=== PATIENT | female | born 1985 | race Caucasian/White ===

== ENCOUNTER 2021-08-04 01:03 | Day surgery (SDC) | payer BC, SELFPAY ==
[2021-07-27 12:21] VITALS: BMI 34.3
--- NOTE | 2021-07-27 12:33 | PC.NURSE ---
Report to the Outpatient Waiting Room, entrance under the green pavilion located off [facility], at time 0730 on date 08/04/21. OR Time: 0930. - You will be asked a series of questions to screen for COVID 19 for your protection. - A mask is required within the hospital. - No visitors are allowed at this time. Preoperative COVID Testing Requirements: No COVID Test needed if: (proof is required; if not received patient will have Rapid Test prior to entry) - Patient has received COVID Vaccine at least 14 days prior to procedure date or - Patient has positive COVID test result within last 90 days of surgery date. COVID Test needed if above criteria is not met Patients may have clear liquids (water, carbonated beverages, clear teas, apple juice) until 3 hours prior to surgery with a maximum of 20 ounces. - No food from midnight until time of surgery - Infants may have breast milk until 4 hours before surgery, formula 6 hours prior to surgery. - Children will be allowed to drink immediately following surgery. If applicable, please bring a bottle or sippy cup to assist with drinking. Juice, water, soda, and popsicles are readily available. For infants on formula, please bring formula the day of surgery. Pacifiers are allowed. Take the following medications with a SIP of water the morning of surgery: LEXAPRO Medications to discontinue per physician: VITAMINS/SUPPLEMENTS Date to take last dose: 07/31/21 Please no make-up, nail sami, hairspray, perfume, deodorant, or body powder the day of surgery. No jewelry (including any body piercings) or valuables the day of surgery, leave them at home. Please take a shower or bath the night before, or the morning of, surgery with an antibacterial soap. Wear comfortable, loose fitting clothing. - Jewelry must be removed prior to entering the operating room. Rings and piercings that are not removed may be cut off. - The hospital will not accept responsibility for valuables. - Please leave all valuables, including medications, at home the day of surgery. If you are going home after surgery, a licensed customer service driver must drive you home. STAYING OVERNIGHT - NO public transportation without another adult. - We recommend that an adult stay with you for 24 hours following discharge. - We also recommend that you do not drive, make important decision, drink alcoholic beverages, or take any drugs that were not prescribed by your health care provider for at least 24 hours after your discharge time. Follow any additional instructions given to you from your surgeon. Telephone instructions given to RASHAD HARPER and asked if any additional questions and then verbalized understanding. Patient advised to call surgeon office or pre surgery nurse liaison [phone] if any additional questions.
--- NOTE | 2021-08-02 06:26 | P.HP_ITS ---
H&P: HPI History of Present Illness Date/Time: 08/02/21 06:26 35-year-old 1 para 1 who is admitted for robotic total vaginal hysterectomy and bilateral salpingectomy secondary to can continued high-grade TIARA. Patient has had recurrent severe dysplasia. She is to a point where she declines continued surveillance and would like to have definitive therapy via hysterectomy. Risks and benefits reviewed in full. Chief Complaint: recurrent high-grade dysplasia Review of Systems Review of Systems: All systems reviewed & are unremarkable except as noted in HPI and below [facility] Social History Social History Smoking status: Never smoker Alcohol intake: current Alcohol use details: 2/MONTH Substance use: never Substance use type: does not use Living arrangements: with family Spiritual care concerns: No Meds Home Medications and Allergies Home Medications Medication Instructions Recorded Confirmed Type aripiprazole [Abilify] 2 mg PO HS 07/27/21 07/27/21 History cetirizine [Zyrtec] 10 mg PO DAILY 07/27/21 07/27/21 History cholecalciferol (vitamin D3) 125 mcg PO DAILY 07/27/21 07/27/21 History [Vitamin D3] escitalopram oxalate 20 mg PO BID 07/27/21 07/27/21 History Allergies Allergy/AdvReac Type Severity Reaction Status Date / Time No Known Allergies Allergy Verified 07/27/21 12:19 Exam Const: General: no acute distress Eyes: General: appearance normal, both eyes and all related structures Neck: Neck: supple and no JVD Thyroid: thyroid normal Resp: Effort & Inspection: normal respiratory effort Auscultation: clear to auscultation bilaterally Cardio: Rate: regular rate Rhythm: regular rhythm GI: Inspection: non-distended GI Palp: Yes Soft to palpation, No Tenderness to palpation present (GI) and No Guarding due to palpation present (GI) Auscultation: normal bowel sounds : General: Yes bladder normal to palpation External Female Exam: normal external appearance Speculum Exam - Vagina: normal vaginal discharge and No vaginal bleeding Speculum Exam - Cervix: nontender Bimanual exam- vagina & uterus: bladder normal to palpation and No Cervical tenderness present OB/external & speculum: No vaginal bleeding Skin: General skin exam: no rashes or lesions noted Extrem: General: normal to inspection and no edema Psych: Mental Status: mental status grossly normal Affect: normal affect Assessment and Plan Additional Plan Impression: Recurrent high-grade dysplasia Plan: Robotic total vaginal hysterectomy and bilateral salpingectomies
--- NOTE | 2021-08-03 13:17 | WPDANESEPPF ---
Anes - Initial Pre Proc Eval Procedure: Operation Date: 08/04/21 09:30 Proposed Procedures p Robotic Assisted Total Vaginal Hysterectomy with Bilateral Salpingectomy - Siddharth Downs MD Date/Time: 08/03/21 13:17 Surgeon: Siddharth Downs MD Pre Op Diagnosis: abnormal pap smear with high dysplasia Patient Data Age: 35 Gender: F Height: 1.78 m Weight: 108.56 kg Allergies Allergy/AdvReac Type Severity Reaction Status Date / Time No Known Allergies Allergy Verified 07/27/21 12:19 Home Medications Medication Instructions Recorded Confirmed Type aripiprazole [Abilify] 2 mg PO HS 07/27/21 07/27/21 History cetirizine [Zyrtec] 10 mg PO DAILY 07/27/21 07/27/21 History cholecalciferol (vitamin D3) 125 mcg PO DAILY 07/27/21 07/27/21 History [Vitamin D3] escitalopram oxalate 20 mg PO BID 07/27/21 07/27/21 History Results Review: All pre-operative results and documents have been reviewed as part of the pre-operative evaluation. [facility] Past Medical History Medical History (Updated 08/03/21 @ 13:17 by Kashmir Pizano MD) Anxiety Depression Social History Social History Smoking status: Never smoker Alcohol intake: current Alcohol use details: 2/MONTH Substance use: never Substance use type: does not use Living arrangements: with family Spiritual care concerns: No Anes - Eval Final PreProcedure Day of Procedure 08/03/21 13:17 Results Review: All pre-operative results and documents have been reviewed as part of the pre-operative evaluation. Informed Consent: The patient's anesthetic plan and its attendant risks and benefits were discussed with the patient/family/POA. Questions were solicited and answers provided to the satisfaction of the patient/family/POA.
[2021-08-04] VITALS (11 sets, daily range): BP systolic 107–143; BP diastolic 58–85; PULSE 68–102; RESP 16–22; TEMP 36.6–37.7; O2SAT 93–100; BMI 34.7
--- NOTE | 2021-08-04 07:07 | WPDHPUPDATE1 ---
History and Physical Update Update Date/Time: 08/04/21 07:07 History and Physical has been reviewed, including an updated exam of the patient. There are NO changes in the patient's condition. Risks, benefits, and alternatives have been discussed and questions answered. Patient agrees to proceed with procedure.
[2021-08-04] MEDS: KETOROLAC 15 MG/ML VIAL (*BKC) IV PUSH (08:09)
[2021-08-04] MEDS: LACTATED RINGERS 1,000 ML 30 ML IV CONT ×2 (08:09→11:10)
[2021-08-04] MEDS: ACETAMINOPHEN 500 MG TABLET 1000 MG PO (08:10)
[2021-08-04 08:25] LABS: Basophils Absolute Auto 0.1 K/mm3 (0.0-0.1); Basophils Percent Auto 0.6 % (0.2-1.2); Eosinophils Absolute Auto 0.2 K/mm3 (0-0.3); Eosinophils Percent Auto 2.3 % (0-4.4); Hematocrit 39.7 % (37.0-47.0); Hemoglobin 13.4 g/dL (12.0-15.0); Immature Granulocyte Absolute 0.05 K/mm3 (0.00-0.031); Immature Granulocyte Percent A 0.5 % (0-0.5); Lymphocytes Absolute Auto 2.13 K/mm3 (0.9-3.2); Mean Corpuscular HGB Conc 33.8 g/dl (32-36); Mean Corpuscular Hemoglobin 31.1 pg (26-34); Mean Corpuscular Volume 92.1 fl (80-100); Mean Platelet Volume 10.3 fl (7.4-10.4); Monocytes Absolute Auto 0.7 K/mm3 (0.1-0.6); Monocytes Percent Auto 7.4 % (2.6-8.5); Neutrophils Absolute Auto 6.1 K/mm3 (1.3-6.7); Neutrophils Percent Auto 66.2 % (45.5-73.1); Platelet Count Result 285 k/mm3 (150-375); Red Blood Count 4.31 M/mm3 (4.2-5.4); Red Cell Distribution Width 12.2 % (11.5-14.5); White Blood Count 9.3 K/mm3 (4.5-10.0)
--- NOTE | 2021-08-04 08:28 | WPDANESEPPF ---
Anes - Initial Pre Proc Eval Procedure: Operation Date: 08/04/21 09:30 Proposed Procedures p Robotic Assisted Total Vaginal Hysterectomy with Bilateral Salpingectomy - Siddharth Downs MD Date/Time: 08/04/21 08:28 Surgeon: Siddharth Downs MD Pre Op Diagnosis: abnormal pap smear with high dysplasia Patient Data Age: 35 Gender: F Height: 1.78 m Weight: 109.7 kg Last Vital Signs Temp 36.9 C 08/04/21 07:50 Pulse 68 08/04/21 07:50 Resp 18 08/04/21 07:50 BP 135/85 08/04/21 07:50 Pulse Ox 98 08/04/21 07:50 Allergies Allergy/AdvReac Type Severity Reaction Status Date / Time No Known Allergies Allergy Verified 08/04/21 07:53 Home Medications Medication Instructions Recorded Confirmed Type aripiprazole [Abilify] 2 mg PO HS 07/27/21 08/04/21 History cetirizine [Zyrtec] 10 mg PO DAILY 07/27/21 08/04/21 History cholecalciferol (vitamin D3) 125 mcg PO DAILY 07/27/21 08/04/21 History [Vitamin D3] escitalopram oxalate 20 mg PO BID 07/27/21 08/04/21 History hydrocodone-acetaminophen 1 tablet PO Q4H PRN #30 tablet 08/04/21 Rx Laboratory Tests 08/04/21 08:10 WBC Pending RBC Pending Hgb Pending Hct Pending MCV Pending MCH Pending MCHC Pending RDW Pending Plt Count Pending MPV Pending Immature Gran % (Auto) Pending Neut % (Auto) Pending Lymph % (Auto) Pending [place] % (Auto) Pending Eos % (Auto) Pending Baso % (Auto) Pending Lymph # (Auto) Pending [place] # (Auto) Pending Eos # (Auto) Pending Baso # (Auto) Pending Abs Immat Gran (auto) Pending Absolute Neuts (auto) Pending Absolute Nucleated RBC Pending Nucleated RBC % Pending Patient hx anesthesia problems: none Family hx anesthesia problems: none Results Review: All pre-operative results and documents have been reviewed as part of the pre-operative evaluation. [facility] Past Medical History Medical History Anxiety Depression Social History Social History Smoking status: Never smoker Alcohol intake: current Alcohol use details: 2/MONTH Substance use: never Substance use type: does not use Living arrangements: with family Spiritual care concerns: No Anes - Eval Final PreProcedure Day of Procedure 08/04/21 08:28 Patient weight: obese Heart: regular rate and rhythm Lungs: clear to auscultation Airway: Mallampati scale class II Neurological: alert and oriented Last oral intake: >/= 8 hours ASA classification: II Emergent: no Anesthetic plan: proceed Anesthesia type and monitoring: general ETT and standard monitoring Results Review: All pre-operative results and documents have been reviewed as part of the pre-operative evaluation. Informed Consent: The patient's anesthetic plan and its attendant risks and benefits were discussed with the patient/family/POA. Questions were solicited and answers provided to the satisfaction of the patient/family/POA.
[2021-08-04] MEDS: ceFAZolin 2 GM/D5W 50 ML 2 GM/50 ML BAG IVPB (09:31)
--- NOTE | 2021-08-04 10:54 | W.PM.PROC2 ---
Procedure Note - Detailed Date of Procedure 08/04/21 Pre-op Diagnosis abnormal pap smear with high dysplasia Post-op Diagnosis same Procedure Performed Robotic total vaginal hysterectomy and bilateral salpingectomies Surgeon Siddharth Downs MD Anesthesia general Indications This is a 35-year-old female with a history of abnormal Pap and high-grade recurrent dysplasia Findings Enlarged uterus normal-appearing ovaries and tubes was a fair amount of scar tissue anteriorly over the bladder and anterior portion of the uterus Description of Procedure The patient was prepped and draped in the normal sterile fashion placed in dorsal lithotomy position. Under excellent general trach anesthesia weighted speculum placed in posterior fornix vagina. Anterior lip of the cervix grasped with a single-tooth tenaculum and the uterus sounded to 10cm. Serial dilatation with fragmented dilators performed followed passes of the 10mm RYANN and the 3. Cold cup. Next the 16 [place] catheter was placed in the bladder drained of clear urine the remainder the instruments removed and gloves were changed. A supraumbilical incision made the Veress needle passed in the abdomen. Abdomen filled with CO2 gas [id number]. The 8mm trocar advanced in the abdomen downside visualized no injury seen. Patient placed in Trendelenburg and right left lateral quadrant incisions made. The 8mm trocars advanced under direct visualization assuring no injury right upper quadrant incision made 8mm trocar advanced under direct visualization assuring no injury. The robot was docked Attention was turned to the preparole counseling aide. The anteriorly the uterus was stuck to the anterior abdominal wall so this was layer by layer dissected until the bladder could be seen. The left round ligament was grasped, burned, cut. And anteriorly a bladder flap was formed by sharply dissecting the peritoneum and reflecting the bladder caudally. This was brought across to the opposite round ligament was clamped, burned, cut. Normal ovaries and tubes were present the tubes were sharply dissected off the other tube was dissected off the ovary and left attached at its origin of the uterus. In like fashion next the cardinal broad ligaments were skeletonized on the left clamped, burned, cut and brought down the lateral edge of the uterus cervix into the uterine vessels could be seen. These were then clamped burned and cut. In like fashion the cardinal broad ligaments on the right were serially skeletonized. They were clamped, burned, cut and brought to the level of the uterine vessels. These were then individually clamped, burned, cut. Blanching of the uterus was noted in a colpotomy incision was made. The cervix uterus and tubes removed through the vagina. The vagina was then closed with continuous running 0V lock from lateral edge to lateral edge and back to the midline. Irrigation undertaken to clear and hemostasis was assured. The robot was then undocked. The gas removed from the incisions closed with 4 Monocryl and glue. The patient was awakened and went to recovery in satisfactory condition. All sponge, needle, instrument counts were correct. There were no immediate complications Estimated Blood Loss 25 Drains No Packing No Pathology yes Complications No immediate complications Condition stable Disposition PACU
[2021-08-04] MEDS: ONDANSETRON INJ 4 MG/2 ML VIAL IV PUSH (11:30)
[2021-08-04] MEDS: diphenhydrAMINE HCl INJ 50 MG/ML VIAL 25 MG IV PUSH (12:00)
[2021-08-04] MEDS: SCOPOLAMINE 1.5 MG PATCH TRANSDERM (12:03)
--- NOTE | 2021-08-04 12:18 | SUR.PHASEI ---
faxed sbar at 1211
--- NOTE | 2021-08-04 12:36 | PC.NURSE ---
This patient, Ana Luisa Landaverde, was received from PACU on 08/04/21 at 1236. Patient/family oriented to unit policies and routines
[2021-08-04] MEDS: DEXTROSE 5%/LACTATED RINGERS 1,000 ML 125 ML IV CONT (13:11)
[2021-08-04] MEDS: KETOROLAC 30 MG/ML VIAL (*BKC) IV PUSH (14:58)
[2021-08-05 00:05] VITALS: BP 119/48; PULSE 81; RESP 18; TEMP 37.2; O2SAT 98
[2021-08-05] MEDS: IBUPROFEN 600 MG TABLET PO (03:50)
[2021-08-05 04:00] VITALS: BP 110/68; PULSE 73; RESP 18; TEMP 36.9; O2SAT 97
[2021-08-05 04:19] LABS: Basophils Absolute Auto 0.1 K/mm3 (0.0-0.1); Basophils Percent Auto 0.5 % (0.2-1.2); Eosinophils Percent Auto 0.3 % (0-4.4); Hemoglobin 12.3 g/dL (12.0-15.0); Immature Granulocyte Absolute 0.08 K/mm3 (0.00-0.031); Immature Granulocyte Percent A 0.6 % (0-0.5); Lymphocytes Absolute Auto 2.39 K/mm3 (0.9-3.2); Lymphocytes Percent Auto 17.4 % (18.3-44.2); Mean Corpuscular HGB Conc 33.2 g/dl (32-36); Mean Corpuscular Hemoglobin 30.7 pg (26-34); Mean Corpuscular Volume 92.3 fl (80-100); Mean Platelet Volume 10.3 fl (7.4-10.4); Monocytes Absolute Auto 1.1 K/mm3 (0.1-0.6); Monocytes Percent Auto 8.2 % (2.6-8.5); Platelet Count Result 304 k/mm3 (150-375); Red Blood Count 4.01 M/mm3 (4.2-5.4); Red Cell Distribution Width 12.1 % (11.5-14.5); White Blood Count 13.7 K/mm3 (4.5-10.0)
[2021-08-05 07:43] VITALS: BP 124/61; PULSE 75; RESP 16; TEMP 37; O2SAT 96
[2021-08-05 07:45] VITALS: BP 124/61; PULSE 75; RESP 12; TEMP 37; O2SAT 96
--- NOTE | 2021-08-05 08:39 | PM.GYNPNOP ---
HYDRAULIC MODELING ENGINEER - A/P Postoperative Procedures: Procedures Operation Date: 08/04/21 09:30 Actual Procedure Side Surgeon p Robotic Assisted Total Vaginal Hysterectomy with Bilateral Salpingectomy Bilateral Siddharth Downs MD A: POD#1, doing well. P: Home to f/u 2 weeks. Time Spent With Patient Time with patient: less than 15 minutes HYDRAULIC MODELING ENGINEER- PN:Subj Post-Op Subjective Date/time seen: 08/05/21 08:39 Interval history: Pain OK. Tolerating diet. Voiding. Would like to go home. Exam Narrative: AVSS I/O OK ABD soft, nontender. Incisions c/d/i. EXT nontender HYDRAULIC MODELING ENGINEER - PN: Obj Data Vital Signs Vital Signs: Vital Signs - 24 hr 08/04/21 11:03 08/04/21 11:15 08/04/21 11:30 Temperature 36.6 C Pulse Rate 101 H 78 74 Respiratory Rate 20 20 20 Blood Pressure 143/58 H 118/62 127/71 Pulse Oximetry 97 100 94 08/04/21 11:47 08/04/21 12:00 08/04/21 12:15 Temperature Pulse Rate 72 78 75 Respiratory Rate 22 H 18 19 Blood Pressure 129/80 135/85 139/79 Pulse Oximetry 93 96 94 08/04/21 12:30 08/04/21 12:45 08/04/21 15:30 Temperature 36.7 C 37.1 C Pulse Rate 74 79 102 H Respiratory Rate 19 16 18 Blood Pressure 134/71 137/78 116/70 Pulse Oximetry 95 95 97 08/04/21 19:06 08/05/21 00:05 08/05/21 04:00 Temperature 37.4 C 37.2 C 36.9 C Pulse Rate 93 81 73 Respiratory Rate 18 18 18 Blood Pressure 107/64 119/48 L 110/68 Pulse Oximetry 96 98 97 08/05/21 07:43 Temperature 37.0 C Pulse Rate 75 Respiratory Rate 16 Blood Pressure 124/61 Pulse Oximetry 96 Intake/Output Intake/Output: Intake & Output 08/02/21 08/03/21 08/04/21 08/05/21 23:59 23:59 23:59 23:59 Intake Total 1400 900 Output Total 1700 2350 Balance -300 -1450 Meds/Results Medications: Active Medications Generic Name Dose Route Start Last Admin Trade Name Freq PRN Reason Stop Dose Admin Hydrocodone Bitart/Acetaminophen 1 tab 08/04/21 12:36 Hydrocodone/Acetaminophen (*Crx) 5-325 Mg Tablet PO Q3H PRN Pain Rated 5 or Less Hydrocodone Bitart/Acetaminophen 1 tab 08/04/21 12:36 Hydrocodone/Acetaminophen (*Crx) 10-325 Mg Tablet PO Q3H PRN Pain Rated 6 or Greater Enoxaparin Sodium 40 mg 08/05/21 09:00 Enoxaparin 40 Mg/0.4 Ml Syringe SUB-Q DAILY AMY Dextrose/Lactated Ringer's 1,000 mls @ 125 mls/hr 08/04/21 12:36 08/04/21 13:11 Dextrose 5%/Lactated Ringers IV CONT 125 mls/hr .Q8H AMY Administration Ibuprofen 600 mg 08/04/21 12:36 08/05/21 03:50 Ibuprofen 600 Mg Tablet PO 600 mg Q6H PRN Administration Cramping Ketorolac Tromethamine 30 mg 08/04/21 12:36 08/04/21 14:58 Ketorolac 30 Mg/Ml Vial (*Bkc) IV PUSH 08/09/21 12:35 30 mg Q6H PRN Administration Pain Rated 4-6 Naloxone HCl 0.1 mg 08/04/21 12:36 Naloxone Hcl 0.4 Mg/Ml Vial IV PUSH Q2M PRN Respiratory rate less than 10 Ondansetron HCl 4 mg 08/04/21 12:36 Ondansetron Inj 4 Mg/2 Ml Vial IV PUSH Q6H PRN Nausea And Vomiting Senna/Docusate Sodium 2 tab 08/04/21 21:00 Senna/Docusate Sodium Tablet PO HS AMY Simethicone 80 mg 08/04/21 12:36 Simethicone 80 Mg Tab.Chew PO Q2H PRN Gas Labs CBC & Chem 7: 08/05/21 03:47 Labs: Laboratory Results - last 24 hr 08/04/21 08/05/21 08:10 03:47 WBC 13.7 H RBC 4.01 L Hgb 12.3 Hct 37.0 MCV 92.3 MCH 30.7 MCHC 33.2 RDW 12.1 Plt Count 304 MPV 10.3 Immature Gran % (Auto) 0.6 H Neut % (Auto) 73.0 Lymph % (Auto) 17.4 L [place] % (Auto) 8.2 Eos % (Auto) 0.3 Baso % (Auto) 0.5 Lymph # (Auto) 2.39 [place] # (Auto) 1.1 H Eos # (Auto) 0.0 Baso # (Auto) 0.1 Abs Immat Gran (auto) 0.08 H Absolute Neuts (auto) 10.0 H Absolute Nucleated RBC 0.0 Nucleated RBC % 0.0 Blood Type O Negative Antibody Screen Negative
--- NOTE | 2021-08-05 08:43 | PM.DS ---
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 Had robotic assisted TVHBS. Did well postoperatively and was able to go home. DS: Data Data Completed and Pending Pending studies at discharge: Pending at discharge 08/04/21 10:08 Surgical [PTH] Routine Labs on day of discharge: Labs from last 24 hours 08/05/21 08/04/21 03:47 08:10 WBC 13.7 H RBC 4.01 L Hgb 12.3 Hct 37.0 MCV 92.3 MCH 30.7 MCHC 33.2 RDW 12.1 Plt Count 304 MPV 10.3 Immature Gran % (Auto) 0.6 H Neut % (Auto) 73.0 Lymph % (Auto) 17.4 L [place] % (Auto) 8.2 Eos % (Auto) 0.3 Baso % (Auto) 0.5 Lymph # (Auto) 2.39 [place] # (Auto) 1.1 H Eos # (Auto) 0.0 Baso # (Auto) 0.1 Abs Immat Gran (auto) 0.08 H Absolute Neuts (auto) 10.0 H Absolute Nucleated RBC 0.0 Nucleated RBC % 0.0 Blood Type O Negative Antibody Screen Negative Discharge Plan Discharge Patient Disposition: Home, Self-Care Discharge Instructions: Pelvic rest for six weeks. Call or return if temperature above 100.4? F, increased abdominal pain, increased vaginal bleeding or any new problems. Stand Alone Forms: General Discharge Instructions Follow-up/Referrals: Siddharth Downs MD [Physician] - 2 Weeks Discharge Medications: New hydrocodone-acetaminophen 5-325 mg tablet 1 tablet PO Q4H PRN (Reason: pain) Qty: 30 RF: 0 No Action cetirizine [Zyrtec] 10 mg Tablet 10 mg PO DAILY RF: 0 escitalopram oxalate 20 mg tablet 20 mg PO BID RF: 0 aripiprazole [Abilify] 2 mg Tablet 2 mg PO HS RF: 0 cholecalciferol (vitamin D3) [Vitamin D3] 125 mcg (5,000 unit) Tablet 125 mcg PO DAILY RF: 0
--- NOTE | 2021-08-05 08:48 | WPDANESPN ---
Anes - Prog Note Post-Op Date/Time: 08/05/21 08:48 Cardiovascular status: normal Respiratory status: normal Airway patency: baseline Mental status: baseline Post-Op hydration status: normal Vital Signs: Last Vital Signs Temp 98.6 F 08/05/21 07:43 Pulse 75 08/05/21 07:43 Resp 16 08/05/21 07:43 BP 124/61 08/05/21 07:43 Pulse Ox 96 08/05/21 07:43 Pain Score (VAS): 0 I/O: Intake & Output 08/04/21 08/05/21 08/05/21 23:59 07:59 15:59 Intake Total 900 Output Total 900 2350 Balance -900 -1450 Laboratory Tests 08/05/21 03:47 08/04/21 08/05/21 08:10 03:47 WBC 13.7 H RBC 4.01 L Hgb 12.3 Hct 37.0 MCV 92.3 MCH 30.7 MCHC 33.2 RDW 12.1 Plt Count 304 MPV 10.3 Immature Gran % (Auto) 0.6 H Neut % (Auto) 73.0 Lymph % (Auto) 17.4 L [place] % (Auto) 8.2 Eos % (Auto) 0.3 Baso % (Auto) 0.5 Lymph # (Auto) 2.39 [place] # (Auto) 1.1 H Eos # (Auto) 0.0 Baso # (Auto) 0.1 Abs Immat Gran (auto) 0.08 H Absolute Neuts (auto) 10.0 H Absolute Nucleated RBC 0.0 Nucleated RBC % 0.0 Blood Type O Negative Antibody Screen Negative Post-procedural complaints: none Patient Feedback: Patient satisfied with anesthetic care.
== END 2021-08-05 11:10 | disposition home or self-care (01) ==
LOC: ANHSURGERY 07:21 → ANHOB2 12:38
PROVIDERS: Visit Provider Obstetrics & Gynecology
PROC: (CPT 58552; principal; 2021-08-04 09:30)
DX: N80.0 Endometriosis of uterus (principal); N73.6 Female pelvic peritoneal adhesions (postinfective); N72 Inflammatory disease of cervix uteri; F41.8 Other specified anxiety disorders
CPT/HCPCS: 58552; S2900; 36415; 85025; 86850; 86900; 86901; 88307; 99199; A9270; J0690; J1100; J1200; J1885; J2250; J2405; J2704; J2710; J3010; J7030; J7120; J7121